=== PATIENT | female | born 1985 | race Caucasian/White ===

== ENCOUNTER 2024-05-22 17:42 | Emergency (ER) | payer OTHER, SELFPAY ==
[2024-05-22 17:48] VITALS: BMI 31.8
--- NOTE | 2024-05-22 18:00 | CRLHL7_ITS ---
For Patients: As a result of the Century Cures Act, medical imaging exams and procedure reports are released immediately into your electronic medical record. You may view this report before your referring provider. If you have questions, please contact your health care provider. INDICATION: Injury. Vision loss. TECHNIQUE: Noncontrast CT images of the brain. COMPARISON: None. FINDINGS: The ventricles and sulci are within normal limits for patient age. No mass effect or midline shift. Rod white differentiation is maintained. No acute intracranial hemorrhage or pathologic extra-axial fluid collection. Globes are symmetric. The calvarium is intact. Ratj-tx-fflfiaal mucosal thickening of the visualized paranasal sinuses. Mastoid air cells are clear. IMPRESSION: No acute intracranial hemorrhage or mass effect. Please note that all CT scans at this facility use dose modulation, iterative reconstruction, and/or weight-based dosing when appropriate to reduce radiation dose to as low as reasonably achievable. Dictated by Charly Mendez MD @ 05/22/2024 6:34:26 PM (Electronically Signed)
--- NOTE | 2024-05-22 18:02 | ED.GENADULT ---
HPI - General Adult General Chief complaint: Headache/Migraine Stated complaint: Right Yazidi Trauma, loss of vision in right side Time Seen by Provider: 05/22/24 17:44 History of Present Illness HPI narrative: This 38-year-old female comes in with injury to her right congregational region. She states she was holding her [id number] child who suddenly jerked the head hitting her in the congregational region. She did not have loss of consciousness but she states that she had brief loss of vision in her right eye. She states that her vision is returned back to normal now. She does report a severe headache and has some waves of nausea. She states that she does get migraine headaches but this 1 is worse. She has not had any vomiting nor has there been any neurologic deficit other than the brief visual loss as described. Related Data Allergies Allergy/AdvReac Type Severity Reaction Status Date / Time No Known Drug Allergies Allergy Verified 05/22/24 17:47 Review of Systems Status of ROS: Reports: 10 or more systems reviewed and unremarkable except as noted in History and below Narrative: Constitutional: No fevers, no weight gain or loss. Eyes: No discharge. Brief loss of vision in the right eye as described above. HENT: No congestion, no sore throat, no ear pain. Cardiovascular: No chest pain, no palpitations. Respiratory: No shortness of breath, no wheezes, no cough. Gastrointestinal: No abdominal pain, no vomiting, no diarrhea. Genitourinary: No dysuria, no hematuria. Musculoskeletal: Normal range of motion. Skin: No rashes, no pruritis. Neurological: No dizziness, weakness, sensory change, speech change. Endo/Heme/Allergies: No bruising or bleeding. No polydipsia. Pysch: no suicidality, no anxiety, no insomnia. All other systems reviewed and are negative. Exam Narrative: Exam Narrative: Constitutional: Well-developed, well-nourished, no acute distress. HEENT: Mild swelling in the right temporal region. No skin injury. Funduscopic exam is norm Neck: Normal range of motion. Nontender. Supple. Heart: Regular. No murmurs. Normal rate. Intact distal pulses. Lungs: Clear to auscultation. No chest discomfort. No wheezes, rhonchi, or rales. Abdomen: Normal bowel sounds. Nontender. No rebound tenderness. Genitalia: Deferred. Back: No midline tenderness. Normal range of motion. Extremities: Normal range of motion. No injury. Skin: Intact. No rash. Warm. No erythema or pallor. Neurologic: No altered sensation. No weakness. Alert and oriented. Pupils are equal and reactive to light. al. No facial asymmetry. Tongue is midline. Qtimkc-ng-jcas is normal. No pronator drift. Eastern Philosophy Professor strength is equal bilaterally. Able to raise each leg from the bed. Psychiatric: No suicidality. No anxiety or depression. No insomnia. Nursing notes and vitals signs are reviewed. Course Medications Administered Medications: Generic Name Dose Route Start Last Admin Trade Name Freq PRN Reason Stop Dose Admin Hydrocodone Bitart/Acetaminophen 1 tab 05/22/24 18:00 05/22/24 18:09 Hydrocodone-Acetamin 5-325 Mg 1 Tab PO 05/22/24 18:01 1 tab ONCE ONE Administration Ondansetron HCl 4 mg 05/22/24 18:00 05/22/24 18:08 Ondansetron Odt 4 Mg Tab PO 05/22/24 18:01 4 mg ONCE ONE Administration Medical Decision Making MDM Narrative Medical decision making narrative: This patient had a closed head injury as described above. His CT scan of her head is obtained and shows no acute findings. The patient states that she is feeling better. Her primary symptom was headache but she did have by her report of brief loss of vision in her right eye at the time that she was hit. There are no findings on CT scan that are concerning. The patient did receive an oral dose of Bryan and Zofran and states that she is feeling better. I did discuss issues pertaining to concussion. She is discharged home with a prescription from [facility] for Toradol. Imaging Data CT scan - head: Radiologist's impression: No acute intracranial hemorrhage or mass effect. Discharge Plan Discharge Clinical Impression: Closed head injury Patient Disposition: Home w/ Parent or Adult Condition: Improved Additional Instructions: Take medication as needed and directed. Increase activity as tolerated. Follow up with MD return if worsening. Stand Alone Forms: [employer] Info Instructions
[2024-05-22] MEDS: ONDANSETRON ODT 4 MG TAB PO (18:08)
[2024-05-22] MEDS: HYDROCODONE-ACETAMIN 5-325 MG 1 TAB PO (18:09)
--- OUTSIDE RECORDS SUMMARY | 2024-05-22 19:13 | XMS_ITS | Encounter Summary ---
[facility] Address [address] [place] [address] Care Team Providers Care Underground Roof Bolter Name Role Phone Robert Maya MD Primary Care Provider [phone] Encounter Details Date Type Department Care Team (Latest Contact Info) Description 11/15/2014 Correspondence [facility] [address] [place], [place] [id number] BASELINE TB SCREENING TOOL Social History Tobacco Use Types Packs/Day Years Used Date Smoking Tobacco: Never Alcohol Use Standard Drinks/Week Comments Yes 1.7 (1 standard drink = 0.6 oz p ure alcohol) Sex and Gender Information Value Date Recorded Sex Assigned at Not on file Gender Identity Not on file Sexual Orientation Not on file documented as of this encounter Plan of Treatment Not on file documented as of this encounter Visit Diagnoses Not on filedocumented in this encounter Additional Health Concerns Infection Onset Date Last Indicated Resolved Time R/O COVID19 12/06/2020 12/06/2020 12/07/2020 12:3 4 AM CDT documented as of this encounter Care Teams Underground Roof Bolter Relationship Specialty [place] [address] [place] [address] PCP - General Family Practice 12/30/22 documented as of this encounter
--- OUTSIDE RECORDS SUMMARY | 2024-05-22 19:13 | XMS_ITS | Clinical Summary ---
Author Organization [facility] Address [place], [place] [address] Care Team Providers Care Management Intern Name Role Phone Anna Pop [facility] Primary Care Provider Allergies Active Allergy Reactions Criticality Noted Date Comments Codeine Palpitations Low 03/09/2020 Desvenlafaxine Succinate Other - Describ e In Comment Field 04/19/2020 Marijuana (Cannabis) Cough,Hives,Throat Swelling/Closing High 03/09/2020 Medications ALPRAZolam (XANAX) 0.25 mg tablet Take by mouth. Active busPIRone (BUSPAR) 5 mg tablet Take 5 mg by mouth two times daily. 09/08/2023 Active PNV/ferrous fum/docusate/fo lic ( VIT-FE FUM-FA-DSS ORAL) Take by mouth. Active oxyCODONE (ROXICODONE) 5 mg immediate release tabletIndicatio ns:Post-op pain Take 1 Tablet (5 mg) by mouth every 6 hours if needed for Pain. 15 Tablet 12/23/2023 2:29 PM CDT 12/23/2023 Active ibuprofen (ADVIL; MOTRIN) 600 mg tabletIndicatio ns:Post-op pain Take 1 Tablet (600 mg) by mouth every 6 hours if needed for Pain. Maximum of 3200 mg in 24 hours. 30 Tablet 12/23/2023 2:29 PM CDT 12/23/2023 Active sennosides-docu sate (SENOKOT S) (8.6-50 mg) tabletIndicatio ns:Post-op pain Take 2 Tablets by mouth once daily. 20 Tablet 12/23/2023 2:29 PM CDT 12/23/2023 Active Active Problems No known active problems Family History Medical History Relation Name Comments Good Health Father Good Health Mother Relation Name Status Comments Father Alive Mother Alive Social History Tobacco Use Types Packs/Day Years Used Date Smoking Tobacco: Never Passive Smoke Exposure: Never Smokeless Tobacco: Never Tobacco Cessation:Counseling Given: Not Answered Alcohol Use Standard Drinks/Week Comments Yes 0 (1 standard drink = 0.6 oz pur e alcohol) 2/week Comments No Sex and Gender Information Value Date Recorded Sex Assigned at Not on file 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 Gender Identity Not on file Sexual Orientation Not on file Obstetrics History Last Filed Vital Signs Vital Sign Reading Time Taken Comments Blood Pressure 122/85 12/23/2023 3:20 PM CDT Pulse 55 12/23/2023 3:20 PM CDT Temperature 36.3 C (97.4 F) 12/23/2023 2:50 PM CDT Respiratory Rate 16 12/23/2023 3:20 PM CDT Oxygen Saturation 100% 12/23/2023 3:20 PM CDT Inhaled Oxygen Concentration - - Weight 89.8 kg (197 lb 14.4 oz) 024 11:37 AM CDT Height 167.6 cm (5' 6) 12/23/2023 11:3 7 AM CDT Body Mass Index 31.94 12/23/2023 11:37 AM CDT Plan of Treatment Health Maintenance Due Date Last Done Comments Tdap 1997 Depression screening for age 12+ 1998 HIV for age 15-65 2001 BMI (ht and wt on same day) for age 18+ 2004 Hepatitis C screening for ag e 18-79 2004 Tetanus booster 2006 Pap test for age 21-65 09/07/2007 COVID-19 vaccine series ( season) 2023 04/29/2021, 10/04/2020, 08/27/2020 Influenza for age 9-49 12/20/2023 Pneumococcal series for age 6-49 Aged Out No longer eligible b ased on patient's age to complete this topic Medical Devices Implanted Type Area Flight Controls Engineer Device Identifier Shelf Expiration Date Model / Serial / Lot Mesh Ventral 11cm [employer] Wecho 2 Rnd - [id number] Implanted:Qty: 1 on 12/23/2023 by Robert Duke MD at [facility] N/A: Abdomen [employer] 05/17/2025 [id number] / / [id number] Insurance [employer] Member Subscriber Plan / Payer (Ef fective 2018-Present) Name:Yumiko Hooper Whit Relation to Subscriber:Not on file Payer ID:Not on file Type:Not on file Address: [place] [address] [place] [address] [employer] [facility] Advance Directives * Full Code (Latest Code Status on File) Date Activated Date Inactivated Comments 12/23/2023 12:34 PM 12/23/2023 6:20 PM Question Answer Comments Code Status Discussion: Not Discussed Care Teams Management Intern Relationship Specialty Start Date End Date Anna Pop [facility] [address] [place] [address] PCP - General 12/03/23
--- OUTSIDE RECORDS SUMMARY | 2024-05-22 19:13 | XMS_ITS | Clinical Summary ---
Author Organization Counts include 234 beds at the [facility] Address [address] [place] [address] Care Team Providers Care Casting Room Helper Name Role Phone Robert Maya MD Primary Care Provider [phone] Source Comments You are receiving this document as you are listed as the primary care provider,follow-up provider, or the patient has been referred to you for consultation.This is in compliance with the Medicare andMedicaid EHR Incentive Program,which states Providers who transition their patient to another setting of careor provider of care or refers their patient to another provider of care shouldprovide summary care record for each transition of care or referral. [facility] Allerg[facility] Active Allergy Reactions Criticality Noted Date Comments Codeine Palpitations 03/09/2020 Desvenlafaxine Succinate Er Other, see comments 04/19/2020 Marijuana (Cannabis Sativa) Cough,Hives, Throat Irritation High 03/09/2020 Medications Medication Sig Dispensed Refills Start Date End Date Status ALPRAZolam (XANAX) 0.25 MG tablet Active Vit-Fe Fumarate-FA (/IRON) 28-0.8 MG TABS Active busPIRone (BUSPAR) 5 MG tablet TAKE 1 TABLET(5 MG) BY MOUTH TWICE DAILY 180 Tablet 1 09/08/2023 Active oxyCODONE (ROXICODONE) 5 MG immediate release tablet Take 1 Tablet (5 mg) by mouth every 6 hours as needed. 12/23/2023 Active sennosides-docusate sodium (SENOKOT S) 8.6-50 MG per tablet Take 2 Tablets by mouth daily. 12/23/2023 Active ibuprofen (MOTRIN) 600 MG tablet Take 1 Tablet (600 mg) by mouth every 6 hours as needed. 12/23/2023 Active Active Problems No known active problems Resolved Problems Problem Noted Date Diagnosed Date Resolved Date S/P primary low transverse 01/02/2023 02/13/2023 Decreased movements in third trimester 02/13/2023 Transverse presentation, antepartum 12/13/2022 02/13/2023 Overview (12/15/2022): Added automatically from request for surgery [id number] Anemia complicating pregnanc y in third trimester 11/17/2022 02/13/2023 resulting from in vitro fertilization, antepartum 06/23/2022 02/13/2023 Overview (10/20/2022): Normal Level 2. 32 week growth scan scheduled. Weekly NST at 36 weeks, deliver by EDC. Antepartum multigravida of a dvanced maternal age 0306/23/2022 02/13/2023 Overview (10/20/2022): Normal pre-implantation genetics. Level 2 normal. Disorder of thyroid, antepartum 06/23/2022 02/13/2023 Overview (06/23/2022): No prior history of thyroid disease. Advised by IVF clinic to be on levothyroxine and keep TSH below 2.5 throughout . Missed 08/06/2020 06/23/2022 Overview (08/06/2020): Added automatically from request for surgery [id number] High-risk 08/03/2020 02/14/20 Anxiety in in firs t trimester, antepartum 08/03/2020 08/03/2020 Anxiety in , antepartum 08/03/2020 02/13/2023 History of pre-eclampsia in prior , currently 08/03/2020 02/13/2023 Overview (06/23/2022): On baby aspirin daily. Abnormal human chorionic gonadotropin (hCG) 03/08/2020 06/23/2022 Overview (03/08/2020): Added automatically from request for surgery [id number] Immunizations Name Administration Dates Next Due DTaP 07/20/1991, 8,04/19/1987,01/02/1987,0 1986 MMR 01/02/2023(Deferred: Patient Refused),10/02/1997,01/04/1988 Moderna Monovalent 12+ 10/04/2020,08/27/2020 Moderna Monovalent Booster 12+ 04/29/2021 Polio, Unspecified Formulation 01/12/1997,1996,07/20/1991,01/04/1988 Td, Preservative Free 10/02/1997 Tdap 10/20/2022, 5,10/02/1997,07/20/1991,0 01/04/1988,04/19/1987,01/02/1987,1986 Family History Medical History Relation Name Comments Cancer Father Kevin obrien Pancreatic can cer Hypertension Mother Carlita Montgomery Spont Abortions Mother Carlita Montgomery Early Brother Barak Rodriguez Heart attack at 32 Heart Disease Brother Barak Rodriguez of heart attack at 32 Stroke Brother Barak Rodriguez Cancer Maternal Grandfather Josemanuel Porras Lung cancer Cancer Maternal Grandmother Hattie Porras Depression Maternal Grandmother Jerry Vern Heart Disease Maternal Grandmother Jerry Vern High Cholesterol Maternal Grandmother Jerry Vern Hypertension Maternal Grandmother Jerry Vern Stroke Maternal Grandmother Jerry Vern Anesthesia Reaction Negative Family History DVT/PE Negative Family History Thromboembolic Disease Negative Family History Relation Name Status Comments Father Kevin obrien Alive Mother Carlita Montgomery Alive Brother Barak Rodriguez Maternal Grandfather Josemanuel Porras Maternal Grandmother Hattie Porras Paternal Grandfather Unknown Other Paternal Grandmother Unknown Other Sister Alive Social History Tobacco Use Types Packs/Day Years Used Date Smoking Tobacco: Never Passive Smoke Exposure: Never Smokeless Tobacco: Never Alcohol Use Standard Drinks/Week Comments Yes 2 (1 standard drink = 0.6 oz pure alcohol) Only drink socially maybe 1-2 drinks a week. PHQ-2 Answer Date Recorded PHQ-2 Score 2 12/03/2023 Hunger Vital Sign Answer Date Recorded Within the past 12 months, y ou worried that your food would run out before you got the money to buy more. Never true 01/03/20 Within the past 12 months, t he food you bought just didn't last and you didn't have money to get more. Never true 01/02/2023 Depression Answer Date Recor ded Last EPDS Total Score 6 06/29/2023 Last EPDS Self Harm Result 0-->never 06/28 Sex and Gender Information Value Date Recorded Sex Assigned at Not on file Gender Identity Not on file Sexual Orientation Not on file Last Filed Vital Signs Vital Sign Reading Time Taken Comments Blood Pressure 123/80 12/25/2023 12:05 PM CDT Pulse 71 12/25/2023 12:05 PM CDT Temperature 36.6 C (97.8 F) 12/25/2023 12:05 PM CDT Respiratory Rate 18 12/25/2023 12:05 PM CDT Oxygen Saturation 100% 12/25/2023 12:05 PM CDT Inhaled Oxygen Concentration - - Weight 89.4 kg (197 lb) 12/03/2023 9:59 AM CDT Height 167.6 cm (5' 6) 12/03/2023 9:59 AM CDT Body Mass Index 31.8 12/03/2023 9:59 AM CDT Plan of Treatment Health Maintenance Due Date Last Done Comments HepB (1) 2005 Adult Preventive Visit 07/31/2023 07/30/2021 COVID-19 Vaccine ( season) 2023 04/29/2021, 10/04/2020, 08/27/2020 Influenza (#1) 2023 Diabetes Screening- (based on age and BMI) 06/09/2025 06/09/2022, 08/03/2020 Cervical Cancer Screening 02/14/2028 02/13/2023 DTaP/Tdap/Td (9 - Tdap) 10/20/2032 10/21/19, 11/15/2014, 10/02/1997, Additional history exists Zoster/Shingles (1 of 2) 2036 IPV (Polio) Completed 01/12/1997, 07/0 05/1996, 07/20/1991, Additional history exists HIV Screening (Preventive Services) Completed 06/09/2022, 08/03/2020 Hep C Screening (Preventive Services) Completed 06/09/2022, 08/03/2020 HPV Vaccine Aged Out No longer eligi ble based on patient's age to complete this topic HepA Aged Out No longer eligi ble based on patient's age to complete this topic Hib Aged Out No longer eligi ble based on patient's age to complete this topic MCV4 Aged Out No longer eligi ble based on patient's age to complete this topic Pneumococcal Aged Out No longer eligi ble based on patient's age to complete this topic Procedures Procedure Name Priority Date/Time Associated Diagnosis Comments PAP TEST Routine 02/13/2023 10:53 AM CDT Screening for cervical cancer HGB A1C Routine 06/09/2022 9:18 AM TARIFF COMPILER High-risk in first trimester HIV 1/2 AG/AB 4TH GEN Routine 06/09/2022 9:18 AM TARIFF COMPILER High-risk in first trimester HEPATITIS C ANTIBODY, WITH REFLEX Routine 06/09/2022 9:18 AM TARIFF COMPILER High-risk in first trimester from Last 3 Months or Most Recently Relevant to Health Maintenance Results * PAP Test (02/13/2023 10:53 AM CDT) Case Report Pap Case: [id number] Authorizing Provider: Aleida Wright MD Collected: 02/13/2023 1053 Ordering Location: [facility] OB-ESTIMATOR PRINTING Received: 02/13/2023 [facility] [place] First Screen: Evelyn Calvillo Specimen: Pap Test, Routine, Cervix/Endocervix 03/04/2023 12:23 PM TARIFF COMPILER [facility] Pap Specimen Adequacy Satisfactory for evaluation, endocervical/moralez sformation zone component present. 03/04/2023 12:23 PM TARIFF COMPILER [facility] Pap Interpretation (NILM) Negative for intraepithelial lesion or malignancy. 03/04/2023 12:23 PM TARIFF COMPILER [facility] Pap Disclaimer The Pap test is a screening test to aid in the detection of cervical and vaginal cancers and their precursor lesions. It is not a diagnostic procedure and should not be used as the sole means of detecting malignancy. Both false-positive and false-negative results may occur. 03/04/2023 12:23 PM TARIFF COMPILER [facility] Gross Description The specimen is received in SurePath fixative and properly labeled. 1 Pap-stained SurePath slide is prepared. 03/04/2023 12:23 PM TARIFF COMPILER [facility] Embedded Images 12:23 PM TARIFF COMPILER [facility] Other Specimen Type ENTIRE ENDOCERVIX / Unknown 02/13/2023 10:53 AM CDT 02/13/2023 2:23 PM CDT Comment:LMP: Patient's last menstrual period was 05/02/2022 (exact date). Aleida Wright MD LAB PATHOLOGY Performing Organization Address [facility] Co de Phone Number [facility] [address] * HIV 1/2 Ag/Ab 4th Generation (06/09/2022 9:18 AM TARIFF COMPILER) HIV 1/2 Antigen/Antib channing (4th generation) Negative (Non Reactive) Negative (Non Reactive) 06/09/2022 5:25 PM TARIFF COMPILER [facility] Comment:HIV-1 p24 Antigen an d HIV-1/HIV-2 Antibody not detected Blood Venipuncture / Unknown 06/09/2022 9:18 AM TARIFF COMPILER 06/09/2022 9:19 AM TARIFF COMPILER Gali Choudhary APRN, CNM LAB_1 Performing Organization Address [facility] Co de Phone Number [facility] [address] * Hepatitis C Antibody, with Reflex (06/09/2022 9:18 AM TARIFF COMPILER) Hepatitis C Antibody Negative (Non Reactive) Negative (Non Reactive) 06/09/2022 5:44 PM TARIFF COMPILER [facility] Comment:Antibodies to HCV no t detected. Does not exclude the possiblity of exposure to HCV. Blood Venipuncture / Unknown 06/09/2022 9:18 AM TARIFF COMPILER 06/09/2022 9:19 AM TARIFF COMPILER Gali Choudhary APRN, PRAKASH LAB_1 Performing Organization Address [facility]/ZIP Co de Phone Number [facility] [address] * Hgb A1C (06/09/2022 9:18 AM TARIFF COMPILER) Hemoglobin A1C 4.9 <=5.6 % 06/09/2022 2:04 PM TARIFF COMPILER [facility] Estimated Average Glucose (Calc) 94 < 117 mg/dL 06/09/2022 2:04 PM [facility] Comment:Estimated average gl ucose (eAG) converts A1c into glucose units (mg/dL) and estimates average glucose over the past approximately 3 months. The eAG reference interval (<117 mg/dL) corresponds to an A1c of <5.7%. Blood Venipuncture / Unknown 06/09/2022 9:18 AM TARIFF COMPILER 06/09/2022 9:19 AM TARIFF COMPILER Gali Choudhary APRN, PRAKASH LAB_1 Performing Organization Address City/[facility] Co de Phone Number [facility] [address] [phone] from Last 3 Months or Most Recently Relevant to Health Maintenance Advance Directives * Full Code (Latest Code Status on File) Date Activated Date Inactivated Comments 01/02/2023 9:36 AM 01/04/2023 5:03 PM * Full Code Date Activated Date Inactivated Comments 08/08/2020 11:06 AM 08/08/2020 4:20 PM * Full Code Date Activated Date Inactivated Comments 03/09/2020 4:52 PM 03/10/2020 12:27 AM Care Teams Casting Room Helper Relationship Specialty [place] [address] [place] [address] PCP - General Family Practice 12/30/22
--- OUTSIDE RECORDS SUMMARY | 2024-05-22 19:14 | XMS_ITS | Clinical Summary ---
Author Organization [place] Address [address] [place] [address] Care Team Providers Care Formula Checker Name Role Phone No Ref-Primary, Physician Primary Care Provider Allergies Active Allergy Reactions Criticality Noted Date Comments Codeine Palpitations Low 03/09/2020 Marijuana (Cannabis Sativa) Cough,Hives High 020 Medications norgestim-eth estrad triphasic (ORTHO TRI-CYCLEN LO) 0.18/0.215/0.25 MG-25 MCG TABS Activ e Active Problems No known active problems Social History Tobacco Use Types Packs/Day Years Used Date Smoking Tobacco: Never Smokeless Tobacco: Never Alcohol Use Standard Drinks/Week Comments Yes 0 (1 standard drink = 0.6 oz pur e alcohol) social Adolescent Education Answer Date Record ed Getting School Help Needed Not on file 01/09 Comments Unknown Sex and Gender Information Value Date Recorded Sex Assigned at Not on file Legal Sex Female 9:36 AM CDT Gender Identity Not on file Sexual Orientation Not on file Last Filed Vital Signs Vital Sign Reading Time Taken Comments Blood Pressure 128/81 08/11/2022 11:36 AM CDT Pulse 85 08/11/2022 11:36 AM CDT Temperature 36.7 C (98.1 F) 08/11/2022 11:36 AM CDT Respiratory Rate 18 08/11/2022 11:36 AM CDT Oxygen Saturation 100% 08/11/2022 11:36 AM CDT Inhaled Oxygen Concentration - - Weight 91 kg (200 lb 9.9 oz) 08/11/2022 11:36 AM CDT Height 167.6 cm (5' 6) 08/11/2022 11:36 AM CDT Body Mass Index 32.38 08/11/2022 11:36 AM CDT Plan of Treatment Health Maintenance Due Date Last Done Comments ADVANCE CARE PLANNING 1986 ANNUAL REVIEW OF HM ORDERS 1986 YEARLY PREVENTIVE VISIT 1989 HIV SCREENING 2001 HEPATITIS C SCREENING 2004 HEPATITIS B IMMUNIZATION (1 of 3 - 19+ 3-dose series) 2005 PAP 09/07/2007 GLUCOSE 01/01/2018 01/01/2015 COVID-19 Vaccine ( season) 2023 04/29/2021, 10/04/2020, 08/27/2020 INFLUENZA VACCINE (#1) 2023 PHQ-2 (once per calendar year) 2024 DTAP/TDAP/TD IMMUNIZATION (7 - Td or Tdap) 11/15/2024 11/15/2014, 10/02/1997, 07/20/1991, Additional history exists RSV VACCINE (1 - 1-dose 75+ series) 2061 HPV IMMUNIZATION Aged Out No longer e ligible based on patient's age to complete this topic MENINGITIS IMMUNIZATION Aged Out No l onger eligible based on patient's age to complete this topic Pneumococcal Vaccine: Pediatrics (0 to 5 Years) and At-Risk Patients (6 to 49 Years) Aged Out No longer eligible based on patient's age to complete this topic RSV MONOCLONAL ANTIBODY Aged Out No l onger eligible based on patient's age to complete this topic Procedures Procedure Name Priority Date/Time Associated Diagnosis Comments COMPREHENSIVE METABOLIC PANEL STAT 01/01/2015 9:50 AM CDT from Last 3 Months or Most Recently Relevant to Health Maintenance Results * (ABNORMAL) Comprehensive metabolic panel (01/01/2015 9:50 AM CDT) Sodium 141 133 - 144 mmol/L [facility] Potassium 3.3(L) 3.4 - 5.3 mmol/L [facility] Chloride 106 94 - 109 mmol/L [facility] Carbon Dioxide 26 20 - 32 mmol/L [facility] Anion Gap 9 3 - 14 mmol/L [facility] Glucose 85 70 - 99 mg/dL [facility] Urea Nitrogen 9 7 - 30 mg/dL [facility] Creatinine 0.68 0.52 - 1.04 mg/dL [facility] GFR Estimate >90 Non GFR Calc >60 mL/min/1. 7m2 [facility] GFR Estimate If Black >90 GFR Calc >60 mL/min/1. 7m2 [facility] Calcium 8.8 8.5 - 10.1 mg/dL [facility] Bilirubin Total 1.8(H) 0.2 - 1.3 mg/dL [facility] Albumin 4.1 3.4 - 5.0 g/dL [facility] Protein Total 7.8 6.8 - 8.8 g/dL [facility] Alkaline Phosphatase 52 40 - 150 U/L [facility] ALT 18 0 - 50 U/L [facility] AST 14 0 - 45 U/L [facility] Blood specimen (specimen) 01/01/2015 9:50 AM CDT 01/01/2015 10:05 AM CDT us Ayush Garcia MD LAB - BLOOD ORDERABLE S Final Result Performing Organization Address City/State/[facility] Co de Phone Number [facility] [address] [place] [address] from Last 3 Months or Most Recently Relevant to Health Maintenance Care Teams Formula Checker Relationship Specialty Start Date End Date No Ref-Primary, Physician PCP - General 12/27/19
--- OUTSIDE RECORDS SUMMARY | 2024-05-22 19:14 | XMS_ITS | Referral Summary ---
Author Organization [place] Address [address] [place] [address] Care Team Providers Care Appointment Manager Name Role Phone No Ref-Primary, Physician Primary [...] 08/11/2022 11:36 AM CDT Plan of Treatment Not on file Procedures Procedure Name Priority Date/Time Associated Diagnosis Comments COMPREHENSIVE METABOLIC PANEL STAT 01/01/2015 9:50 AM CDT from Last 3 Months or Most Recently Relevant to Health Maintenance Results * (ABNORMAL) Comprehensive metabolic panel (01/01/2015 9:50 AM CDT) Sodium 141 133 - 144 mmol/L [facility] Potassium 3.3(L) 3.4 - 5.3 mmol/L [facility] Chloride 106 94 - 109 mmol/L [facility] Carbon Dioxide 26 20 - 32 mmol/L [facility] Anion Gap 9 3 - 14 mmol/L [facility] Glucose 85 70 - 99 mg/dL [facility] Urea Nitrogen 9 7 - 30 mg/dL [facility] Creatinine 0.68 0.52 - 1.04 mg/dL [facility] GFR Estimate >90 Non GFR Calc >60 mL/min/1. 7m2 [facility] GFR Estimate If Black >90 GFR Calc >60 mL/min/1. 7m2 [facility] Calcium 8.8 8.5 - 10.1 mg/dL [facility] Bilirubin Total 1.8(H) 0.2 - 1.3 mg/dL [facility] Albumin 4.1 3.4 - 5.0 g/dL [facility] Protein Total 7.8 6.8 - 8.8 g/dL [facility] Alkaline Phosphatase 52 40 - 150 U/L [facility] ALT 18 0 - 50 U/L [facility] AST 14 0 - 45 U/L [facility] Blood specimen (specimen) 01/01/2015 9:50 AM CDT 01/01/2015 10:05 AM CDT Ayush Garcia MD LAB - BLOOD ORDERABLE S Final Result [address] [address] from Last 3 Months or Most Recently Relevant to Health Maintenance Care Teams Appointment Manager Relationship Specialty Start Date End Date No Ref-Primary, Physician PCP - General 12/27/19
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
--- OUTSIDE RECORDS SUMMARY | 2024-05-22 19:14 | XMS_ITS | Data Portability ---
Author Organization [place] [facility] [employer], [id number] Address [address] [facility] [address] [place] [address] Assessment Encounter Date Assessment Date Assessment LastModified by Organization Details LastModified Time 01/31/2020 01/31/2020 >50% of the visit was spent in consultation or coordination of care. Total time spent was ___20 minutes. [email or web address] Not available 01/31/2020 17:47:17 Plan of Treatment Reminders Order Date Submit Date Provider Last Modified By Organization Details Last Modified Time Details Appointments None recorded. Lab None recorded. Referral None recorded. Procedures None recorded. Surgeries None recorded. Imaging US, breast, unilateral 2019 020 [email or web address] [address] [facility] [place], [id number], [facility] [address], [place], [address], 0 15:20:42 Medication Orders None recorded. Patient TargetsNo targets recorded. Patient InstructionsNo instructions recorded. Reason for Referral None Reported. Results Created Date Observation Date Name Description Value Unit Range Abnormal Flag Note LastModifiedBy Organization Detail LastModifiedTime 02/02/2002/02/2020 US, josh thima teral No observ ation record ed. [email or web address] Not Available 2019 09:56:54 Result Notes None recorded. Problems Name Problem SNOMED Code Status Onset Date Resolution Date Notes Provider Name and Address Organization Details Recorded Time Old myocardial infarction 2002963 Active *Date Onset: 2015 Not Available [facility] 0 13:59:18 Depressive disorder 97330658 Active 020 Ngozi Lerma (TERMED) null, [facility] [employer] 0 17:05:47 Anxiety 89085178 Active 020 Ngozi Lerma (TERMED) null, [facility] [employer] 0 17:05:53 Problem Notes None recorded. Procedures Surgical History Date Name Laterality Status Provider Name and Address Organization Details Recorded Time removal of benign tumor from bone completed Ngozi Lerma (TERMED) [facility] [employer] 01/31/2020 17:08:19 Imaging Results Imaging Date Name Status LastModified by Organiz ation Details LastModified Time 02/02/2020 US, breast, unilateral completed [email or web address] Information not available 02/06/2020 09:56:54 Procedure Notes None recorded. Medical Equipment None Reported. Allergies No known drug allergies Medications Name Sig Start Date Stop Date Status Note LastModified by Organization Details LastModified Time prednisone 20 mg tablet 2019 completed Not Available Not Available Not Available buspirone 10 mg tablet active Not Available Not Available No t Available Estarylla 0.25 mg-35 mcg tablet 2019 completed Not Available Not Available Not Available Vitals Date Recorded Body weight Provider Name an d Address Organization Details Last Updated DateTime 01/31/2020 16746.03 g Ngozi Lerma (TERMED) [facility] [employer] 01/31/2020 17:13:05 Date Recorded Heart rate Provider Name an d Address Organization Details Last Updated DateTime 01/31/2020 81 /min Ngozi Lerma (TERMED) [facility] [employer] 01/31/2020 17:13:23 Date Recorded Systolic blood pressure Diastolic blood pressure Provider Name and Address Organization Details Last Updated DateTime 01/31/2020 130 mm[Hg] 75 mm[Hg] Ngozi Lerma (TERMED) [facility] [employer] 01/31/2020 17:13:17 Social History Question Answer Notes LastModified by Organizat ion Details LastModified Time Tobacco Smoking Status Never Smoker Ngozi Lerma (TERMED) null, [facility] [employer] 01/31/2020 17:06:30 What Is Your Level Of Alcohol Consumption? None Alcohol Information not available 11/25/2019 What Is Your Level Of Caffeine Consumption? None Caffeine Information not available 11/25/2019 How Much Tobacco Do You Chew? None Information not available 01/31/2020 What Type Of Diet Are You Following? REGULAR No Particular Diet Information not available 11/25/2019 Do You Or Have You Ever Used E-cigarettes Or Vape? Never Used Electronic Cigarettes Information not available 01/31/2020 History Of Domestic Violence No Denies Domestic Violence Information not available 11/25/2019 Marital Status Single Engaged Information not available 11/25/2019 What Was The Date Of Your Most Recent Tobacco Screening? 01/31/2020 Information not available 01/31/2020 Performs Monthly Self-breast Exam? Yes Monthly Self Breast Exam-Yes Information not available 11/25/2019 Are You Sexually Active? Yes Currently Sexually Active Information not available 11/25/2019 Do You Or Have You Ever Used Smokeless Tobacco? Never Used Smokeless Tobacco Information not available 01/31/2020 How Much Tobacco Do You Smoke? No Information not available 01/31/2020 How Many Years Have You Smoked Tobacco? 0 Information not available 01/31/2020 Sex: Unknown Functional Status Question Answer Note LastModified by Organizat ion Details LastModified Time What is your exercise level? Heavy Heavy Amount of Exercise (4 or more times weekly) Information not available 11/25/2019 Mental Status None recorded. Family History Relationship Description Onset Age of this Age Resolved Age Notes LastModified by Organization Details LastModified Time Maternal Grandmother Heart disease Heart Diseas e [email or web address] Not available 11/25/2019 11:41:10 Medical History Condition Response Psych- Depression Gynecological History Statement/Question Response Date of LMP 01/11/2020 Obstetrics History GPAL:G 1 P 1 0 0 1 Type Value Multiple Births 0 Full Term 1 Induced 0 Spontaneous 0 Premature 0 Living 1 Ectopics 0 Total 1 Past Encounters Encounter ID Performer Location Encounter Start Date Encounter Closed Date Diagnosis/Indication Diagnosis SNOMED-CT Code Diagnosis ICD10 Code Diagnosis Note [id number] OLIVER DUENAS, DO [id number] IVORY [facility]IS [address] [facility] [place] [id number] 01/31/2020 16:54:48 02/07/2020 15:20:42 Breast tenderness 88179315 N64.4 Fertility care 432973401 Z31.84 Reviewed history, rec. 81mg ASA at 12 weeks, acyclovir for acute outbreak and prophylaxi s at 36 wks; continue buspirone. Start vit. Health Concerns Section Related Observation LastModified by Organization Detai ls LastModified Time None Recorded Concern Status LastModified by Organization Details LastModified Time None Recorded Advance Directives Directive None Recorded Payers Encounter Date Sequence Insurance Name Policy Number Policy Le Covered Member ID Le Member ID Guarantor Name 01/31/2020 1 [employer] (POS) [id number] Yumiko Rodriguez [id number] Yumiko Rodriguez Notes Date Note Type Note Provider Name and Address Organization Details Recorded Time 01/31/2020 text/html Breast Mass ([facility])Reported bypatient.Left Breastnipple; lower outer quadrant; present at 6 o'clock; Nipple dimpling * Quality:ill defined; soft; deep; tender * Severity:mild * Duration:4 days * Timing:Onset: sudden * Context:mammogram date:2011 normal (for clogged duct w/ ); no family history of breast, ovarian, uterine or colon cancer * Associated Signs & Symptoms:breast pain;dense breast tissueNotes:Quest ions about fertility planning: h/o pre-eclampsia and HSV, on buspirone [place] [address] [facility],[address], [place], [address], [place] [facility] [employer] 01/31/2020 17:47:34 OBGyn Episode No OBEpisode recorded.
== END 2024-05-22 19:13 | disposition home or self-care (01) ==
LOC: ED 19:12
PROVIDERS: Emergency Provider Emergency Medicine Emergency Medical Services
DX: S09.90XA Unspecified injury of head, initial encounter (principal); W50.0XXA Accidental hit or strike by another person, initial encounter
CPT/HCPCS: 70450; 99283; 99284; A9270